=== PATIENT | female | born 1980 | race Caucasian/White ===

== ENCOUNTER 2018-08-28 19:33 | Emergency (ER) | payer BC, OTHER ==
--- NOTE | 2018-08-28 20:19 | PDOC ---
Rapid Medical Evaluation Medical Evaluation: I have performed a brief in-person evaluation of this patient. The patient presents with a chief complaint of: C/o L sided WALDRON, intermittent, since 4 days ago; now noting L blurred vision today; also c/o tingling in LUE; denies n/v; has been taking Tylenol and Motrin which help with WALDRON Pertinent physical exam findings: In NAD, no gross focal deficits I have ordered the following: Labs, UCG, Tylenol, Reglan The patient will proceed to the ED for further evaluation. 08/28/18 20:16
[2018-08-28 20:20] VITALS: BP 112/69; PULSE 74; TEMP 98; BMI 27.1
[2018-08-28] MEDS ORDERED: SODIUM CHLORIDE 1,000 ML IV STA (20:20)
[2018-08-28] MEDS ORDERED: ACETAMINOPHEN 325 MG TABLET (FP) PO ONE (20:20)
[2018-08-28] MEDS ORDERED: METOCLOPRAMIDE HCL INJECTION 10 MG/2 ML VIAL IVPB ONE (20:20)
[2018-08-28] MEDS ORDERED: ACETAMINOPHEN 325 MG TABLET (FP) ONE (21:25)
[2018-08-28 21:33] LABS: BASO % 0.9 % (0-2.0); EOS % 3.5 % (0-4.5); HEMATOCRIT 38.9 % (32.4-45.2); HEMOGLOBIN 13.8 GM/dL (10.7-15.3); LYMPH % 42.3 % (8-40); MCH 32.8 pg (25.7-33.7); MCHC 35.4 g/dl (32.0-36.0); MEAN CELL VOLUME 92.8 fl (80-96); MEAN PLT VOLUME 7.5 fl (7.5-11.1); MONO % 8.6 % (3.8-10.2); NEUT % 44.7 % (42.8-82.8); PLATELET COUNT 232 K/MM3 (134-434); RBC 4.19 M/mm3 (3.60-5.2); RDW 13.8 % (11.6-15.6); WHITE BLOOD COUNT 4.2 K/mm3 (4.0-10.0)
[2018-08-28 21:57] LABS: ANION GAP 6 MMOL/L (8-16); BLOOD UREA NITROGEN 13 mg/dL (7-18); CALCIUM 8.6 mg/dL (8.5-10.1); CHLORIDE 108 mmol/L (98-107); CO2 28 mmol/L (21-32); CREATININE 0.7 mg/dL (0.55-1.3); GLUCOSE,RANDOM 93 mg/dL (74-106); POTASSIUM 3.9 mmol/L (3.5-5.1); SODIUM 142 mmol/L (136-145)
--- NOTE | 2018-08-28 23:12 | PDOC ---
History of Present Illness - General Chief Complaint: Headache Stated Complaint: HEADACHE Time Seen by Provider: 08/28/18 20:16 - History of Present Illness Initial Comments: 38 year old female with no PMH presenting with left sided headache for the past 5 days with onset of left eye blurry vision today. Patient states that she is having a left sided intermittent headache stemming from her upper posterior neck and wrapping around to the front of her head. Headache is worse at the end of the day, not worse with bending over, not worse with cough. Tylenol and Motrin improve the headache. She does admit to mild sonophobia and photophobia when the headache is severe. Denies nausea, vomiting, or FND. She was worried because hse had some left eye blurriness today while driving home from work without visual field loss or floater. She also admits to some left arm pain one week prior that she does not believe is related to this. She has had lasik surgery 7 months ago in both eyes. Denies fevers, chills, chest pain, SOB, leg swelling, cardiac history or other symptoms. 08/29/18 00:12 Past History - Past Medical History Allergies/Adverse Reactions: Allergies Allergy/AdvReac Type Severity Reaction Status Date / Time vancomycin Allergy Verified 08/28/18 20:16 COPD: No - Suicide/Smoking/Psychosocial Hx Smoking History: Never smoked Review of Systems - Review of Systems Constitutional: No: Chills, Diaphoresis, Fever, Loss of Appetite HEENTM: No: Blurred Vision, Tearing, Recent change in vision Respiratory: No: Cough, Shortness of Breath, Stridor Cardiac (ROS): No: Chest Pain, Edema, Irregular Heart Rate ABD/GI: No: Diarrhea, Nausea, Vomiting : No: Burning, Dysuria, Discharge Integumentary: No: Bruising, Lesions, Lumps Neurological: Yes: Headache. No: Numbness, Paresthesia, Seizure Psychiatric: Yes: Stressors. No: Anxiety, Depression Endocrine: No: Flushing, Intolerance to Cold, Intolerance to Heat Hematologic/Lymphatic: No: Anemia, Blood Clots, Easy Bleeding *Physical Exam - Vital Signs Last Vital Signs Temp Pulse Resp BP Pulse Ox 98 F 74 18 112/69 98 08/28/18 20:17 08/28/18 20:17 08/28/18 20:17 08/28/18 20:17 08/28/18 20:17 - Physical Exam General Appearance: Yes: Nourished, Appropriately Dressed. No: Apparent Distress HEENT: positive: EOMI, SHAREE, Normal ENT Inspection, Normal Voice, Other (20/25 vision in left eye 20/30 vision in right eye. No visual field loss. TTP over left posterior scalp with small subcutaneous soft nodule. No palpable cord or pulitile lesion. Soft mass causes worsening headache.) Neck: positive: Normal Thyroid, Supple. negative: Tender, Rigid Respiratory/Chest: positive: Lungs Clear, Normal Breath Sounds. negative: Chest Tender, Respiratory Distress, Accessory Muscle Use Cardiovascular: positive: Regular Rhythm, Regular Rate Gastrointestinal/Abdominal: positive: Normal Bowel Sounds, Flat, Soft. negative : Tender Lymphatic: negative: Adenopathy, Tenderness Musculoskeletal: positive: Normal Inspection, CVA Tenderness. negative: Decreased Range of Motion Extremity: positive: Normal Capillary Refill, Normal Inspection, Normal Range of Motion Integumentary: positive: Normal Color, Dry, Warm Neurologic: positive: Fully Oriented, Alert, Normal Mood/Affect, Normal Response , Motor Strength 5/5 Moderate Sedation - Procedure Monitoring Vital Signs: Procedure Monitoring Vital Signs Temperature 98 F 08/28/18 20:17 Pulse Rate 74 08/28/18 20:17 Respiratory Rate 18 08/28/18 20:17 Blood Pressure 112/69 08/28/18 20:17 O2 Sat by Pulse Oximetry (%) 98 08/28/18 20:17 ED Treatment Course - LABORATORY CBC & Chemistry Diagram: 08/28/18 21:23 08/28/18 21:23 - ADDITIONAL ORDERS Additional order review: Laboratory Results 08/28/18 08/28/18 21:28 21:23 Sodium 142 Potassium 3.9 Chloride 108 H Carbon Dioxide 28 Anion Gap 6 L BUN 13 Creatinine 0.7 Creat Clearance w eGFR > 60 Random Glucose 93 Calcium 8.6 Urine HCG, Qual Negative 08/28/18 21:23 RBC 4.19 MCV 92.8 MCHC 35.4 RDW 13.8 MPV 7.5 Neutrophils % 44.7 Lymphocytes % 42.3 H Monocytes % 8.6 Eosinophils % 3.5 Basophils % 0.9 - Medications Given in the ED: ED Medications Discontinued Medications Generic Name Dose Route Start Last Admin Trade Name Freq PRN Reason Stop Dose Admin Acetaminophen 975 mg 08/28/18 20:20 08/28/18 21:28 Tylenol - PO 08/28/18 20:21 975 mg ONCE ONE Administration Medical Decision Making - Medical Decision Making 38 year old female with left sided headache that does not present with red flags but does have a report of mild left eye blurriness. No visual field deficit on our exam or FND. Labs WNL, Head CT negative, EKG wnl. Patient better after reglan and tylenol. Will DC with return precautions and follow up with neurology. 08/29/18 00:30 *DC/Admit/Observation/Transfer Diagnosis at time of Disposition: Headache Qualifiers: Headache type: unspecified Headache chronicity pattern: acute headache Intractability: not intractable Qualified Code(s): R51 - Headache - Discharge Dispostion Disposition: HOME Condition at time of disposition: Improved Decision to Admit order: No - Referrals Referrals: ON STAFF,NOT [Primary Care Provider] - Moses Desir MD [Staff Physician] - - Patient Instructions Printed Discharge Instructions: DI for Headache Additional Instructions: Please follow up with the neurologist on this sheet of paper. Please use Tylenol and Motrin for the pain. Please return if you have new or worsening symptoms. - Post Discharge Activity Forms/Work/School Notes: Back to Work
--- NOTE | 2018-08-28 23:41 | PDOC ---
Attending Attestation - HPI HPI: 08/28/18 23:50 The patient is a 38 year old female with no PMH who presents to the ER with headache for the past 5 days. Patient states she has had more stress over the past week at work. Patient states the headache starts at the border of her neck and radiates up to the left side of her head. Patient reports the headache was gradual onset and not the worst headache of her life. Patient denies any worsening of the headache with coughing or bending over. Patient reports improvement of her headache after taking Tylenol and Advil at home. She states the headache is worse at the end of the day. Patient noticed blurriness in the left eye today prompting her to come to the ER for further evaluation. Patient denies photophobia or phonophobia. <Hayley Stephens - Last Filed: 08/28/18 23:50> - Resident Resident Name: Keiry Monroe - ED Attending Attestation I have performed the following: I have examined & evaluated the patient, The case was reviewed & discussed with the resident, I agree w/resident's findings & plan - Physicial Exam PE: 08/29/18 02:16 GENERAL: Awake, in no acute distress HEAD: Pinpoint tenderness left occipital region reproducing chief complaint EYES: Visual acuity grossly intact ENT:clear without exudates. Moist mucosa NECK: Normal ROM, LUNGS:. Normal work of breathing. HEART: Regular rate and rhythm, ABDOMEN: Soft, nondistended CHEST WALL: BACK: No midline tenderness. EXTREMITIES:. No erythema, or tenderness NEUROLOGICAL: Alert, SKIN: Warm, Dry 08/29/18 02:18 - Medical Decision Making 08/29/18 02:17 Headaches 38-year-old female with intermittent pinpoint left-sided posterior headache and an episode of blurred vision while driving now resolved CT scan of the brain shows no acute abnormality Patient has a normal sinus rhythm on EKG She has no risk factors for TIA/CVA and is asymptomatic at this time after Toradol and Reglan She will be discharged to follow up with neurology outpatient <Jessa Robertson - Last Filed: 08/29/18 02:19>
[2018-08-29] MEDS ORDERED: METOCLOPRAMIDE HCL INJECTION 10 MG/2 ML VIAL ONE ×2 (00:24→01:45)
[2018-08-29] MEDS ORDERED: ACETAMINOPHEN 325 MG TABLET (FP) ONE (00:24)
--- NOTE | 2018-08-29 16:29 | EKG ---
Test Reason : Blood Pressure : / mmHG Vent. Rate : 063 BPM Atrial Rate : 063 BPM P-R Int : 168 ms QRS Dur : 084 ms QT Int : 448 ms P-R-T Axes : 045 -14 030 degrees QTc Int : 458 ms NORMAL SINUS RHYTHM NORMAL ECG NO PREVIOUS ECGS AVAILABLE Confirmed by Reza Ramos ([id number]) on 08/29/2018 4:28:28 PM Referred By: Confirmed By:Reza Ramos
== END 2018-08-29 02:47 | disposition home or self-care (01) ==
LOC: JER 19:33
DX: R51 Headache (principal)
CPT/HCPCS: 36415; 70450-TC; 80048; 84703; 85025; 93005; 93010; 99282-25